=== PATIENT | male | born 1985 | race Two or more races ===

== ENCOUNTER 2016-02-27 17:10 | Emergency (ER) | payer OTHER ==
--- NOTE | 2016-02-27 19:18 | RAD ---
Name: SHAWENE ALANIS Exam: Two-view chest Comparison: None Clinical history: Cough and fever Findings: 2 views of the chest are submitted. Heart, mediastinum and hilar structures are normal. There is mild elevation of the left hemidiaphragm. There is minimal increased density over the heart on the lateral but it is unknown whether this is on the right or left. There is no failure, pleural effusion or pneumothorax. Regional skeleton is within normal limits. Impression: Minimal basilar infiltrate is suspected
== END 2016-02-27 19:45 | disposition home or self-care (01) ==
LOC: ED 17:10
DX: J11.1 Influenza due to unidentified influenza virus with other respiratory manifestations (principal)